=== PATIENT | female | born 1980 | race Two or more races ===

== ENCOUNTER 2024-05-12 07:01 | Emergency (ER) | payer OTHER ==
[~2024-05-12] VITALS: Ht 152.4 cm; Wt 60.0 kg
[2024-05-12 07:35] VITALS: BP 111/67; PULSE 86; RESP 17; TEMP 98.5; O2SAT 96
--- NOTE | 2024-05-12 08:14 | ED.PDOC ---
History of Present Illness HPI Comments 43 year old presents for URI symptoms. C/o productive cough, diarrhea x 2 days Chief Complaint: Flu like Time Seen by MD: 07:25 Reviewed Notes: Nurses Notes, Medications, Allergies Information Source: Patient Mode of Arrival: Ambulatory Prehospital treatment: Treatment (OTC COugh medicine) Severity: Moderate Context: Recent: URI History of: Immunosuppression (Dx with RA 2023) Symptoms: Cough, Sore throat Associated Signs and Symptoms: None (Diarrhea: 2 loose stools, non bloody. ) Past Medical History Past Medical History (Other): RA Surgical History: Denies all surgeries DEPUTY REGISTER OF DEEDS History: No Pertinent DEPUTY REGISTER OF DEEDS History Social History Smoker: Non-Smoker Alcohol: Denies ETOH Use Drugs: Denies Drug Use Lives In: Home All Other Systems: Reviewed and Negative (Per HPI) Physical Exam General Appearance: No Apparent Distress, Normal HEENT: Normal ENT Inspection, Pharynx Normal, TMs Normal Neck: Full Range of Motion, Non-Tender, Normal, Normal Inspection Respiratory: Chest Non-Tender, Lungs Clear, No Accessory Muscle Use, No Respiratory Distress, Normal Breath Sounds Cardiovascular: No Edema, No JVD, No Murmur, No Gallop, Normal Peripheral Pulses, Regular Rate/Rhythm Breast Exam: Deferred Gastrointestinal: No Organomegaly, Non Tender, No Pulsatile Mass, Normal Bowel Sounds, Soft Genitalia: Deferred Pelvic: Deferred Rectal: Deferred Extremities: No calf tenderness, Normal capillary refill, Normal inspection, Normal range of motion, Non-tender, No pedal edema Musculoskeletal : Apperance: Normal Neurologic: Alert, cloth spreader screen printing II-XII nml as Tested, No Motor Deficits, Normal Affect, Normal Mood, No Sensory Deficits Cerebellar Function: Normal Reflexes: Normal Skin: Dry, Normal Color, Warm Lymphatic: No Adenopathy Was a procedure done? Was a procedure done?: No Fever Differential Dx Differential Diagnosis: Influenza, Viral Syndrome X-Ray, Labs, Meds, VS Vital Signs Date Time Temp Pulse Resp B/P (MAP) Pulse Ox O2 Delivery O2 Flow Rate FiO2 05/12/24 07:35 98.5 86 17 111/67 (82) 96 98.5 05/12/24 07:35 86 17 96 Room Air 05/12/24 07:23 98.5 86 17 111/67 (82) 96 PATIENT: ANITA PELAYOACCT: [id number]: [id number] : 1980 LOC: ER ROOM / BED: / AGE / SEX: 43 / F ADM STATUS: REG ER SERVICE 3 ORDERING PHYSICIAN: JOSELYN SILVA NP PROCEDURE(s): CXR2 - CHEST TWO VIEWS ROUTINE REASON: cough, hx of RA ORDER NUMBER(s): [id number], ACCESSION NUMBER(s): [id number] CHEST RADIOGRAPH Indication: cough, hx of RA Technique: Frontal and lateral view of the chest was obtained Comparison: None FINDINGS: Lines and Tubes: None Lungs: Clear Pleura: No effusion. No pneumothorax. Cardiomediastinal contours: Unremarkable Bones: Unremarkable IMPRESSION: No evidence of acute disease. ATED BY: ZECHARIAH PÉREZ MD DICTATED DATE/TIME: 05/12/24842 SIGNED BY: ZECHARIAH PÉREZ MD SIGNED DATE/TIME: 05/12/24842 CC: X-Ray, Labs, Meds, VS Comment On presentation, the patient is afebrile and has stable vital signs. The patient is overall well-appearing nontoxic on exam. On physical exam, respirations even and unlabored, clear to auscultation bilaterally. Oxygen stable on room air. Chest x-ray interpreted independently by myself Low suspicion of strep pharyngitis given physical exam findings and patient's presenting symptoms No signs of meningismus on exam Overall, the patient is well hydrated and nontoxic. Plan for symptomatic control for fever and pain as needed. Antibiotics Rx for hx of RA. The patient was able to tolerate p.o. intake in the ED. at this time, patient is safe for discharge home. The exam findings and plan discussed. We will discharge home with PCP follow up and strict return precautions. Discussed that cough can linger up to 6 weeks after viral URI Supportive care and return precautions discussed Recommended vitamin C, rest, handwashing, and symptomatic care. Expect 2-week course with possibly of cough lingering up to 6 weeks. Nonpharmacological remedies for fluids has been recommended as well On reevaluation, patient had symptomatic improvement. Patient is stable for discharge at this time. External notes reviewed. Test results and diagnostic imaging interpreted. All diagnostic findings, discharge care, education and instructions provided Follow-up with PCP in 2 to 3 days Patient verbalized understanding and agreed to treatment plan Vital signs stable, afebrile, no acute distress noted Patient ambulatory with strong steady gait Advised to return precautions for any new or worsening symptoms, return to ER immediately for re-evaluation Patient is aware that the purpose of this visit was for an acute medical emergency requiring emergent stabilization. Chronic conditions, including malignancies have not been ruled out. Patient is instructed to follow up with PCP as directed and discharge instructions for continued care and workup. If unable to arrange follow-up, patient is to return to the emergency department for reassessment. Patient (parent or legal guardian if applicable) was given verbal and written discharge instructions and acknowledges understanding. Time of 1ST Reevaluation: 08:52 Reevaluation 1ST: Improved Patient Education/Counseling: Diagnosis, Treatment Family Education/Counseling: Diagnosis, Treatment Departure 1 Departure Time of Disposition: 08:55 Impression: Primary Impression: Viral syndrome Disposition: HOME / SELF CARE / HOMELESS Condition: Stable e-Prescriptions Acetaminophen (Acetaminophen) 500 Mg Tab 500 MG PO Q6HP PRN for 10 Days, #40 TAB 0 Refills Prov: JOSELYN SILVA ASSISTANT MANAGER 05/12/24 Promethazine-Dm (Promethazine Dm 6.25-15 mg/5Ml) 1 Julianna Julianna 5 ML PO TIDPRN PRN for 10 Days, #150 ML 0 Refills Prov: JOSELYN SILVA ASSISTANT MANAGER 05/12/24 Benzonatate (Benzonatate) 100 Mg Cap 1 CAP PO TID for 10 Days, #30 CAP 0 Refills Prov: JOSELYN SILVA ASSISTANT MANAGER 05/12/24 Amoxicillin & Pot Clavulanate (AUGMENTIN TABLET) 875 Mg Tb 875 MG PO BID for 7 Days, #14 TAB 0 Refills Prov: JOSELYN SILVA NP 05/12/24 Discharged With: Self Critical Care Note Critical Care Time?: No Stability Stability form required: No Heart Score Heart Score: Heart Score Response (Comments) Value History N/A 0 EKG N/A 0 Age N/A 0 Risk Factors N/A 0 Troponin N/A 0 Total 0 JOSELYN SILVA NP May 12, 2024 08:14
--- NOTE | 2024-05-12 08:45 | DVH ---
CHEST RADIOGRAPH Indication: cough, hx of RA Technique: Frontal and lateral view of the chest was obtained Comparison: None FINDINGS: Lines and Tubes: None Lungs: Clear Pleura: No effusion. No pneumothorax. Cardiomediastinal contours: Unremarkable Bones: Unremarkable IMPRESSION: No evidence of acute disease.
[2024-05-12] MEDS ORDERED: ACET500T58 PO (08:57)
[2024-05-12] MEDS ORDERED: BENZ100C97 PO (08:57)
[2024-05-12] MEDS ORDERED: PROM1SOL4 PO (08:57)
[2024-05-12] MEDS ORDERED: AUG875T PO (08:57)
[2024-05-12] MEDS: cefTRIAXone SOD 1,000 MG VL IM ONE (09:04)
== END 2024-05-12 09:26 | disposition home or self-care (01) ==
LOC: ER 07:01
DX: B34.9 Viral infection, unspecified (principal)
CPT/HCPCS: 71046; 96372; 99283; J0696